=== PATIENT | female | born 1985 | race Caucasian/White ===

== ENCOUNTER 2020-06-11 12:30 | Inpatient (IN) | payer BC ==
[~2020-06-11] VITALS: Ht 167.6 cm; Wt 70.8 kg
[2020-06-25] MEDS ORDERED: PRENATAL TABLE1 EAC1 PO (08:11)
== END 2020-06-27 11:02 | disposition home or self-care (01) | DRG 807 ==
LOC: LDR 06-25 07:18 → OB/GYN 06-25 17:43 → SURH 06-26 12:30 → OB/GYN 06-27 11:02
PROVIDERS: ADMIT Obstetrics & Gynecology Maternal & Fetal Medicine; ATTEND Obstetrics & Gynecology Maternal & Fetal Medicine
PROC: 10E0XZZ Delivery of Products of Conception, External Approach (ICD-10-PCS; principal; 2020-06-25)
PROC: 0HQ9XZZ Repair Perineum Skin, External Approach (ICD-10-PCS; 2020-06-25)
PROC: 0W8NXZZ Division of Female Perineum, External Approach (ICD-10-PCS; 2020-06-25)
PROC: 10907ZC Drainage of Amniotic Fluid, Therapeutic from Products of Conception, Via Natural or Artificial Opening (ICD-10-PCS; 2020-06-25)
PROC: 3E033VJ Introduction of Other Hormone into Peripheral Vein, Percutaneous Approach (ICD-10-PCS; 2020-06-25)
PROC: 4A1HXFZ Monitoring of Products of Conception, Cardiac Rhythm, External Approach (ICD-10-PCS; 2020-06-25)
DX: O70.0 First degree perineal laceration during delivery (principal); Z37.0 Single live birth; Z3A.39 39 weeks gestation of pregnancy; Z20.822 Contact with and (suspected) exposure to COVID-19